=== PATIENT | female | born 1975 | race Caucasian/White ===

== ENCOUNTER 2018-04-10 12:30 | Emergency (ER) | payer SELFPAY ==
[~2018-04-10] VITALS: Ht 152.4 cm; Wt 90.9 kg
[~2018-04-10 12:30] MED LIST: PERCOCET 325 MG1 TA2 PO; ULTRAM 50MG TAB50 MG PO; ZOFRAN8 MG PO
[2018-04-10] MEDS ORDERED: CRANBERRY FRUI405 MG PO (12:38)
[2018-04-10] MEDS ORDERED: ST JOHN S WOR PO (12:38)
[2018-04-10 12:39] VITALS: TEMP 98.1
[2018-04-10] MEDS ORDERED: ESTROVEN MAX400 MCG PO (12:39)
[2018-04-10 12:54] LABS: BASO % 0.4 % (0.0-2.0); EOS # 0.1 (0.0-0.7); EOS % 1.4 % (0-4.0); GRAN # 4.4 (1.4-6.5); GRAN % 60.8 % (42.2-75.2); HEMATOCRIT 41.9 % (37.0-47.0); HEMOGLOBIN 13.9 g/dl (12.5-16.0); LYMPH # 2.1 (1.2-3.4); LYMPH % 28.6 % (20.0-51.0); MEAN CELL VOLUME 96 fl (80.0-100.0); MEAN CORPUSCULAR HEMOGLOBIN 32 pg (27.0-31.0); MEAN CORPUSCULAR HGB CONC 33 g/dl (33.0-37.0); MEAN PLATELET VOLUME 10.5 fl (7.4-10.4); MONO # 0.6 (0.1-0.6); PLATELET COUNT 287 K/mm3 (130-400); RED BLOOD COUNT 4.35 M/mm3 (4.10-5.30); REDCELL DISTRIBUTION WIDTH-CV 12.7 % (11.5-14.5)
[2018-04-10 13:05] LABS: ALANINE AMINOTRANSFERASE 33 U/L (9-52); ALBUMIN 4.4 gm/dL (3.5-5.0); ALKALINE PHOSPHATASE 86 U/L (50-136); ANION GAP 12 mmol/L (7-16); AST,SGOT 22 U/L (15-37); BILIRUBIN,TOTAL 0.6 mg/dL (0.0-1.0); BLOOD UREA NITROGEN 19 mg/dL (7-17); CALCIUM 9.6 mg/dL (8.4-10.2); CARBON DIOXIDE 23 mmol/L (22-30); CHLORIDE 104 mmol/L (98-107); GLUCOSE 97 mg/dL (74-106); POTASSIUM 4.2 mmol/L (3.4-5.0); SODIUM 139 mmol/L (137-145); TOTAL PROTEIN 7.9 gm/dL (6.4-8.2)
[2018-04-10 13:17] LABS: TROPONIN-I < 0.012 ng/mL (0.000-0.034)
[2018-04-10 13:21] LABS: PROTHROMBIN TIME 11.9 SECONDS (9.7-12.8)
[2018-04-10 13:24] LABS: PARTIAL THROMBOPLASTIN TIME 40.2 SECONDS (26.0-37.0)
[2018-04-10] MEDS ORDERED: PRINIVIL10 MG PO (15:16)
[2018-04-10 15:19] VITALS: BP 154/81; PULSE 54
== END 2018-04-10 15:23 | disposition home or self-care (01) ==
LOC: COL.ER 12:30
PROVIDERS: Family Medicine
DX: I10 Essential (primary) hypertension (principal); R07.9 Chest pain, unspecified; F41.9 Anxiety disorder, unspecified

== ENCOUNTER 2019-01-01 10:34 | Emergency (ER) | payer SELFPAY ==
[~2019-01-01] VITALS: Ht 165.1 cm; Wt 100.0 kg
[~2019-01-01 10:34] MED LIST changes: +CRANBERRY FRUI405 MG PO; +ESTROVEN MAX400 MCG PO; +PRINIVIL10 MG PO; +ST JOHN S WOR PO
[2019-01-01 10:51] VITALS: TEMP 97.6
[2019-01-01] MEDS ORDERED: MEDROL 4MG DOSPA4 MG PO (15:17)
[2019-01-01] MEDS ORDERED: NORCO 325 MG-51 TAB PO (15:17)
[2019-01-01] MEDS ORDERED: FLEXERIL 1010 MG/TAB PO (15:17)
[2019-01-01 15:45] VITALS: BP 138/72; PULSE 68
== END 2019-01-01 15:50 | disposition home or self-care (01) ==
LOC: COL.ER 10:34
DX: M54.5 Low back pain (principal); G89.29 Other chronic pain; R29.6 Repeated falls; Z79.1 Long term (current) use of non-steroidal anti-inflammatories (NSAID)
CPT/HCPCS: J7512